=== PATIENT | female | born 1985 | race Caucasian/White ===

== ENCOUNTER 2016-10-31 22:48 | Emergency (ER) | payer OTHER ==
[~2016-10-31] VITALS: Ht 170.1 cm; Wt 62.6 kg
[~2016-10-31 22:48] MED LIST: AMOXICILLIN500 MG PO; ANAPROX DS550 MG PO; ANUSOL HC,ANUCO25 MG PO; BACTRIM DS 8001 TA1 PO; CIPRO250 MG PO; DIVALPROEX SOD125 MG PO; DOC-Q-LACE100 MG PO; FIORICET 325 MG1 TAB PO; FLAGYL500 MG PO; INDERAL10 MG PO; IRON325 MG PO; MACROBID100 M1 PO; NAPROSYN500 MG PO; NATURE'S BLEND100 M2 PO; OXYCODONE HCL5 MG PO; PERCOCET 325 MG1 TA6 PO; PRENATAL1 TA1 PO; SENNA-LAX8.6 MG PO; TAB-A-VITE1 TA1 PO; TOBREX 5 ML5 ML OPH; TRAMADOL HCL50 MG PO; VICODIN 500 MG-1 TAB PO; ZYRTEC10 MG PO
[2016-10-31 22:53] VITALS: BP 130/84
[2016-10-31 23:27] LABS: BASO % 0.5 % (0.0-1.0); EOS # 0.2 10*3/uL (0.0-0.4); EOS % 2.1 % (1.0-4.0); HEMOGLOBIN 12.9 g/dl (12.0-16.0); LYMPH # 3.6 10*3/uL (1.3-4.4); MEAN CELL VOLUME 87.3 fl (81.0-99.0); MEAN CORPUSCULAR HGB 28.2 pg (27.0-31.0); MEAN CORPUSCULAR HGB CONC 32.3 g/dl (33.0-37.0); MEAN PLATELET VOLUME 11.2 fl (9.6-12.3); MONO # 0.4 10*3/uL (0.1-1.0); MONO % 5.7 % (3.0-9.0); NEUT # 3.4 10*3/uL (2.3-7.9); NEUT % 44.4 % (47.0-73.0); PLATELET COUNT AUTOMATED 198 10*3/uL (130-400); RED BLOOD COUNT 4.58 10*6/uL (4.10-5.10); WHITE BLOOD COUNT 7.6 10*3/uL (4.8-10.8)
[2016-10-31 23:41] LABS: ALBUMIN 3.6 gm/dl (3.1-4.5); ALKALINE PHOSPHATASE 71 U/L (45-117); BUN 14 mg/dl (7-24); CHLORIDE 110 mmol/L (98-107); CREATININE 0.82 mg/dL (0.55-1.02); SGOT/AST 39 IU/L (3-35); SGPT/ALT 51 U/L (12-78); SODIUM 142 mmol/L (136-145); TOTAL PROTEIN 7.8 gm/dL (6.4-8.2)
[2016-10-31 23:44] LABS: ETHYL ALCOHOL < 3.0 mg/dl (<3)
== END 2016-11-01 00:58 | disposition left against medical advice (07) ==
LOC: ED 22:48
PROVIDERS: Student in an Organized Health Care Education/Training Program
DX: M25.532 Pain in left wrist (principal); M25.572 Pain in left ankle and joints of left foot; R51 Headache; F17.200 Nicotine dependence, unspecified, uncomplicated; Z88.1 Allergy status to other antibiotic agents; Z91.018 Allergy to other foods; Y08.89XA Assault by other specified means, initial encounter; Y93.89 Activity, other specified; Y92.89 Other specified places as the place of occurrence of the external cause; Y99.9 Unspecified external cause status